=== PATIENT | male | born 1960 | race African-American/Black ===

== ENCOUNTER 2016-11-20 16:42 | Outpatient (CLI) ==
[2016-05-16 11:19] VITALS: BMI 33.4
[2016-11-20 17:29] LABS: BASOPHILS # (AUTO) 0.1 K/uL (0-0.2); BASOPHILS % (AUTO) 0.5 % (0.0-3.0); EOSINOPHILS # (AUTO) 0.1 K/ul (0.0-0.7); EOSINOPHILS % (AUTO) 0.7 % (0.0-7.0); HEMATOCRIT 37.7 % (42.0-52.0); HEMOGLOBIN 13.1 g/dl (14.0-18.0); IMMATURE GRANULOCYTE % (AUTO) 0.2 % (0.0-5.0); LYMPHOCYTES # (AUTO) 3.8 K/uL (0.60-3.4); LYMPHOCYTES % (AUTO) 30.5 (10.0-50.0); MEAN CORPUSCULAR HGB CONC 34.7 (31.8-35.4); MEAN CORPUSCULAR VOLUME 89.3 fl (80.0-94.0); MONOCYTES # (AUTO) 1.2 K/uL (0.4-2.0); MONOCYTES % (AUTO) 9.3 (0-10); NEUTROPHILS # (AUTO) 7.3 K/ul (2.0-6.9); NEUTROPHILS % (AUTO) 58.8; PLATELET COUNT 258 10^3/uL (140-440); RED BLOOD COUNT 4.22 10^6/ul (4.70-6.10); WHITE BLOOD COUNT 12.37 K/ul (4.2-10.2)
[2016-11-20 17:48] LABS: ALBUMIN 4.5 g/dL (3.4-5.0); ALBUMIN/GLOBULIN RATIO 1.22; ANION GAP 19.6; BILIRUBIN,TOTAL 0.62 mg/dL (0.00-1.20); BUN/CREATININE RATIO 9.14; CALCIUM 9.6 mg/dL (8.2-10.2); CHOL/HDL RATIO 5.9 (4.5-6.4); POTASSIUM 3.6 mmol/L (3.5-5.1); TOTAL PROTEIN 8.2 g/dL (6.4-8.2)
[2016-11-20 18:13] LABS: CREATININE 5.25 mg/dL (0.60-1.10)
== END 2016-11-20 16:43 | disposition home or self-care (01) ==
LOC: LAB 16:42
PROVIDERS: ATTEND Nurse Practitioner Family
DX: F41.9 Anxiety disorder, unspecified (principal); I10 Essential (primary) hypertension; M54.2 Cervicalgia
CPT/HCPCS: 36415; 80053; 80061; 85025

== ENCOUNTER 2016-12-24 12:57 | Outpatient (CLI) ==
[2016-05-16 11:19] VITALS: BMI 33.4
[2016-12-24 15:43] LABS: BASOPHILS % (AUTO) 0.4 % (0.0-3.0); EOSINOPHILS # (AUTO) 0.2 K/ul (0.0-0.7); EOSINOPHILS % (AUTO) 2.5 % (0.0-7.0); HEMATOCRIT 42.6 % (42.0-52.0); HEMOGLOBIN 14.1 g/dl (14.0-18.0); IMMATURE GRANULOCYTE % (AUTO) 0.1 % (0.0-5.0); LYMPHOCYTES # (AUTO) 2.3 K/uL (0.60-3.4); LYMPHOCYTES % (AUTO) 30.4 (10.0-50.0); MEAN CORPUSCULAR HEMOGLOBIN 30.3 pg (27.0-31.0); MEAN CORPUSCULAR HGB CONC 33.1 (31.8-35.4); MEAN CORPUSCULAR VOLUME 91.6 fl (80.0-94.0); MONOCYTES # (AUTO) 0.6 K/uL (0.4-2.0); MONOCYTES % (AUTO) 7.2 (0-10); NEUTROPHILS # (AUTO) 4.6 K/ul (2.0-6.9); NEUTROPHILS % (AUTO) 59.4; PLATELET COUNT 303 10^3/uL (140-440); RED BLOOD COUNT 4.65 10^6/ul (4.70-6.10); WHITE BLOOD COUNT 7.66 K/ul (4.2-10.2)
[2016-12-24 15:55] LABS: ALBUMIN 3.8 g/dL (3.4-5.0); ALBUMIN/GLOBULIN RATIO 0.95; ANION GAP 14.5; BILIRUBIN,TOTAL 0.15 mg/dL (0.00-1.20); BUN/CREATININE RATIO 21.35; CALCIUM 9.7 mg/dL (8.2-10.2); CREATININE 1.03 mg/dL (0.60-1.10); POTASSIUM 4.5 mmol/L (3.5-5.1); TOTAL PROTEIN 7.8 g/dL (6.4-8.2)
== END 2016-12-24 12:58 | disposition home or self-care (01) ==
LOC: LAB 12:57
PROVIDERS: ATTEND Emergency Medicine
DX: I10 Essential (primary) hypertension (principal); N17.0 Acute kidney failure with tubular necrosis
CPT/HCPCS: 36415; 80053; 85025

== ENCOUNTER 2017-02-04 08:31 | Emergency (ER) ==
[2017-02-04 08:42] VITALS: TEMP 95.9; BMI 36.0
[2017-02-04 08:50] VITALS: BP 131/95
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
--- NOTE | 2017-02-04 09:53 | CT ---
EXAM: CT of the head without contrast History: Head trauma. Comparison: Head CT 04/25/2016 Technique: Multiplanar CT images through the head were obtained without the administration of IV co ntrast Findings: The visualized paranasal sinuses and mastoid air cells are clear in general. No acute ca lvarial abnormalities. Intracranially the ventricular and cisternal spaces are normal in size, shape and configuration for a patient of this age. No dominant mass or midline shift. No hydrocephalous. No acute intracrania l hemorrhage or abnormal extraaxial fluid collections. Impression: No acute intracranial process.
--- NOTE | 2017-02-04 09:59 | CT ---
EXAM: CT cervical spine. HISTORY: Injury, pain . TECHNIQUE: CT cervical spine without contrast. Detailed axial sections. Coronal and sagittal re-f ormations. COMPARISON: 05/12/2016 FINDINGS: No acute fracture is identified. Vertebral body height is maintained. No spondylolisthesis. Facet joints are covered. Lateral masses of C1 and C2 are normally aligned and the odontoid process is in tact. Moderate to severe degenerative disc and facet disease of the majority of the spine greatest at C6/C7 where there is moderate central canal and bilateral neural foraminal stenosis. These findi ngs are stable since previous exam. Prevertebral soft tissue thickness is normal. There is no para spinal hematoma or fluid collection. IMPRESSION: 1. No acute fracture or subluxation. 2. Moderately severe degenerative changes of the spine.
== END 2017-02-04 10:15 | disposition home or self-care (01) ==
LOC: ED 08:31
DX: S09.90XA Unspecified injury of head, initial encounter (principal); S19.9XXA Unspecified injury of neck, initial encounter; Y00.XXXA Assault by blunt object, initial encounter
CPT/HCPCS: 99283

== ENCOUNTER 2017-03-05 09:51 | Outpatient (CLI) ==
--- NOTE | 2017-03-05 10:47 | CT ---
EXAM: CT of the left knee without contrast History: Left knee pain. Comparison: Left knee radiograph 04/23/2016 Technique: Multiplanar CT images through the left knee were obtained without the administration of I V contrast Findings: No acute fracture or dislocation. Moderate to severe narrowing of the medial compartment. Mild to moderate narrowing of the lateral and patellofemoral compartments. There are osteophytes a nd subchondral cysts. There are intra-articular loose bodies. Small joint effusion. Mild anterior soft tissue swelling. Impression: 1. No acute osseous abnormality. 2. Tricompartmental osteoarthritis which is moderate to severe involving the medial compartment. 3. Small joint effusion and anterior soft tissue swelling. 4. Intra-articular loose bodies.
== END 2017-03-05 09:52 | disposition home or self-care (01) ==
LOC: RAD 09:51
PROVIDERS: ATTEND Emergency Medicine
DX: M25.562 Pain in left knee (principal)

== ENCOUNTER 2017-04-28 14:08 | Emergency (ER) ==
[2017-04-28 14:17] VITALS: BP 145/67; TEMP 99.3; BMI 34.9
--- NOTE | 2017-04-28 15:47 | ED.PDOC ---
General ED Provider: Dr. ARA SARMIENTO Chief Complaint: Knee Pain/Injury Stated Complaint: right knee pain Time Seen by Physician: 15:33 (fall ) Mode of Arrival: Wheelchair Information Source: Patient Exam Limitations: No limitations [facility] and Triage Documentation Reviewed and Agree: Yes (would like muscle relaxore to be refill) Review of Systems - Review Of Systems Constitutional: Reports: No symptoms Eyes: Reports: No symptoms Ears, Nose, Mouth, Throat: Reports: No symptoms Respiratory: Reports: No symptoms Cardiac: Reports: No symptoms GI: Reports: No symptoms : Reports: No symptoms Musculoskeletal: Reports: Joint pain (left knee) Skin: Reports: No symptoms Neurological: Reports: No symptoms Endocrine: Reports: No symptoms Hematologic/Lymphatic: Reports: No symptoms All Other Systems: Reviewed and Negative Past Medical History - Past Medical History Previously Healthy: Yes Endocrine: Reports: None Cardiovascular: Reports: Hypertension Respiratory: Reports: Asthma, None Hematological: Reports: None Gastrointestinal: Reports: None Genitourinary: Reports: None Neuro/Psych: Reports: None, Anxiety, Depression, Schizophrenia Musculoskeletal: Reports: None Cancer: Reports: None Other Pertinent Past Medical History: DDD - Surgical History General Surgical History: Reports: Other, Hernia Repair - Family History Family History: Reports: None, Unknown - Social History Smoking Status: Former smoker Hx Substance Use: No Alcohol Screening: Occasionally Physical Exam - Physical Exam Appearance: Well-appearing, No pain distress, Well-nourished Eyes: JASWINDER, EOMI, Conjunctiva clear ENT: Ears normal, Nose normal, Oropharynx normal Respiratory: Airway patent, Breath sounds clear, Breath sounds equal, Respirations nonlabored Cardiovascular: RRR, Pulses normal, No rub, No murmur GI/: Soft, Nontender, No masses, Bowel sounds normal, No Organomegaly Musculoskeletal: Limited ROM (right knee) Skin: Warm, Dry, Normal color Neurological: Sensation intact, Motor intact, Reflexes intact, Cranial nerves intact, Alert, Oriented Psychiatric: Affect appropriate, Mood appropriate Critical Care Note - Critical Care Note Total Time (mins): 0 Course - Course Orders, Labs, Meds: Orders Category Date Time Status KNEE, RIGHT 4 VIEWS Stat RADS 04/28/17 15:39 Ordered Vital Signs: Temp Pulse Resp BP Pulse Ox 04/28/17 14:13 99.3 F 129 H 16 145/67 H 97 Departure - Departure Time of Disposition: 17:00 Disposition: HOME SELF-CARE Discharge Problem: Knee pain Instructions: Arthralgia (ED), Knee Pain (ED) Condition: Good Pt referred to PMD for follow-up: Yes Allergies/Adverse Reactions: Allergies morphine Adverse Reaction (Verified 04/28/17 14:10) GETS VIOLENT Home Medications: Ambulatory Orders Hydroxyzine HCl [Atarax] 25 mg PO TID 03/15/16 Amitriptyline HCl 50 mg PO BEDTIME 04/18/16 Hydrocodone/Acetaminophen [[place] 5-325 Tablet] 1 each PO BID 04/28/17
--- NOTE | 2017-04-28 16:11 | DI ---
EXAM: Four views of the right knee HISTORY: Right knee pain. COMPARISON: Right knee x-ray 01/27/2014 FINDINGS: There is no cortical irregularity or displaced fracture. Minimal osteophyte formation is n oted throughout the right knee. There is prepatellar soft tissue swelling with patellar osteophyte p resent. There is no effusion. Metallic densities are noted in the right lower leg. There is no lyti c or blastic lesion. IMPRESSION: 1. Mild prepatellar soft tissue swelling suggestive of trauma versus cellulitis/inflammation. 2. Mild degenerative disease of the right knee.
== END 2017-04-28 16:24 | disposition home or self-care (01) ==
LOC: ED 14:08
DX: M25.561 Pain in right knee (principal); W19.XXXA Unspecified fall, initial encounter
CPT/HCPCS: 99283

== ENCOUNTER 2017-05-01 13:09 | Outpatient (CLI) ==
[2017-05-01 13:20] LABS: BASOPHILS % (AUTO) 0.5 % (0.0-3.0); EOSINOPHILS # (AUTO) 0.2 K/ul (0.0-0.7); EOSINOPHILS % (AUTO) 3.3 % (0.0-7.0); HEMATOCRIT 39.5 % (42.0-52.0); HEMOGLOBIN 13.2 g/dl (14.0-18.0); IMMATURE GRANULOCYTE % (AUTO) 0.2 % (0.0-5.0); LYMPHOCYTES # (AUTO) 2.1 K/uL (0.60-3.4); LYMPHOCYTES % (AUTO) 33.1 (10.0-50.0); MEAN CORPUSCULAR HEMOGLOBIN 29.9 pg (27.0-31.0); MEAN CORPUSCULAR HGB CONC 33.4 (31.8-35.4); MEAN CORPUSCULAR VOLUME 89.6 fl (80.0-94.0); MONOCYTES # (AUTO) 0.7 K/uL (0.4-2.0); MONOCYTES % (AUTO) 10.7 (0-10); NEUTROPHILS # (AUTO) 3.4 K/ul (2.0-6.9); NEUTROPHILS % (AUTO) 52.2; PLATELET COUNT 261 10^3/uL (140-440); RED BLOOD COUNT 4.41 10^6/ul (4.70-6.10); WHITE BLOOD COUNT 6.46 K/ul (4.2-10.2)
[2017-05-01 13:53] LABS: ALBUMIN 3.3 g/dL (3.4-5.0); ALBUMIN/GLOBULIN RATIO 0.92; ANION GAP 11.4; BILIRUBIN,TOTAL 0.19 mg/dL (0.00-1.20); BUN/CREATININE RATIO 16.96; CALCIUM 9.2 mg/dL (8.2-10.2); CHOL/HDL RATIO 5.1 (4.5-6.4); CREATININE 1.12 mg/dL (0.60-1.10); POTASSIUM 4.4 mmol/L (3.5-5.1); TOTAL PROTEIN 6.9 g/dL (6.4-8.2)
== END 2017-05-01 13:10 | disposition home or self-care (01) ==
LOC: LAB 13:09
PROVIDERS: ATTEND Emergency Medicine
DX: I10 Essential (primary) hypertension (principal)
CPT/HCPCS: 36415; 80053; 80061; 84443; 85025

== ENCOUNTER 2017-07-04 10:17 | Outpatient (CLI) ==
--- NOTE | 2017-07-04 11:48 | US ---
EXAM: Ultrasound soft tissue neck HISTORY: Localized enlarged lymph nodes. FINDINGS: Tobar-scale ultrasound and color Doppler imaging was performed in the regions of interest de scribed as the region of left submandibular palpable knot. There was a lobulated hypoechoic, probably solid nodule measuring 2.5 x 1.8 x 3.0 cm identified in the region. This appears to possibly be wit hin the submandibular gland proper. There appears to be at least mild internal blood flow. No signi ficant posterior acoustic enhancement. IMPRESSION: Findings concerning for a left submandibular gland mass or complex fluid collection. Less likely an adjacent mass. Correlation with MRI should be considered.
== END 2017-07-04 10:18 | disposition home or self-care (01) ==
LOC: RAD 10:17
PROVIDERS: ATTEND Emergency Medicine
DX: R59.0 Localized enlarged lymph nodes (principal)

== ENCOUNTER 2017-08-28 12:53 | Outpatient (CLI) | END 2017-08-28 12:54 | disposition home or self-care (01) | LOC: RHC-LAB 12:53 | PROVIDERS: ATTEND Emergency Medicine | DX: E78.5 Hyperlipidemia, unspecified (principal); I10 Essential (primary) hypertension | CPT/HCPCS: 36415; 80053; 80061; 84443; 85025 ==

== ENCOUNTER 2018-01-08 15:38 | Outpatient (CLI) | END 2018-01-08 15:39 | disposition home or self-care (01) | LOC: RHC-LAB 15:38 | PROVIDERS: ATTEND Emergency Medicine | DX: F41.9 Anxiety disorder, unspecified (principal); E78.5 Hyperlipidemia, unspecified; I10 Essential (primary) hypertension; Z12.5 Encounter for screening for malignant neoplasm of prostate | CPT/HCPCS: 36415; 80053; 80061; 84443; 85025 ==

== ENCOUNTER 2018-08-07 13:50 | Outpatient (CLI) | END 2018-08-07 13:51 | disposition home or self-care (01) | LOC: RHC-LAB 13:50 → FCC-LAB 13:51 | PROVIDERS: ATTEND Family Medicine | DX: E78.5 Hyperlipidemia, unspecified (principal); F41.9 Anxiety disorder, unspecified; I10 Essential (primary) hypertension; M79.89 Other specified soft tissue disorders | CPT/HCPCS: 36415; 80053; 80061; 85025 ==

== ENCOUNTER 2018-08-11 10:11 | Outpatient (CLI) ==
[2018-08-11 10:27] VITALS: BMI 13.8
== END 2018-08-11 10:16 | disposition critical access hospital (66) ==
LOC: AMBL 10:11
PROVIDERS: ATTEND Emergency Medicine
DX: S89.92XA Unspecified injury of left lower leg, initial encounter (principal); M79.89 Other specified soft tissue disorders; W19.XXXA Unspecified fall, initial encounter

== ENCOUNTER 2018-08-11 10:23 | Emergency (ER) ==
[2018-08-11 10:27] VITALS: BP 137/98; TEMP 98; BMI 13.8
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
[2018-08-11] MEDS ORDERED: TORADOL PO STA (10:39)
--- NOTE | 2018-08-11 11:15 | DI ---
EXAM: Four views of the left knee. History: Left knee trauma. Comparison: Left knee radiograph 04/23/2016 Findings: No acute fracture or dislocation. Evidence of old MCL injury. Anterior soft tissue swell ing. Small superior patellar enthesiophyte. Intra-articular loose body, similar to the prior study within the anterior joint space at Hoffa's fat pad. Mild to moderate tricompartmental joint space na rrowing with osteophytes not significantly changed. Impression: No acute osseous abnormality. Other findings as detailed above. No significant interva l change compared to the prior study.
== END 2018-08-11 11:50 | disposition home or self-care (01) ==
LOC: ED 10:23
DX: M17.12 Unilateral primary osteoarthritis, left knee (principal); M25.462 Effusion, left knee; M25.562 Pain in left knee; S83.92XA Sprain of unspecified site of left knee, initial encounter
CPT/HCPCS: 99283

== ENCOUNTER 2018-08-27 17:43 | Emergency (ER) ==
[2018-08-27 17:52] VITALS: BP 126/85; TEMP 97.8; BMI 30.6
--- NOTE | 2018-08-27 19:32 | ED.PDOC ---
General ED Provider: Dr. LESVIA LYNCH Chief Complaint: Tooth Problem Stated Complaint: patient is a 58 year old male who states that he broke a tooth off while eating today. Now has severe pain to left upper tooth not better with motrin. Has not contacted a dentist yet. Time Seen by Physician: 19:30 Mode of Arrival: Walk-In Information Source: Patient Primary Care Provider: GEORGE CHAVEZ Nursing and Triage Documentation Reviewed and Agree: Yes Does patient meet sepsis criteria?: No System Inflammatory Response Syndrome: Not Applicable Sepsis Protocol: For patient's 13 years and over: Temp is 96.8 and below OR 101 and greater Pulse >90 BPM Resp >20/minute Acutely Altered Mental Status Are patient's symptoms suggestive of a new infection, such as: -Pneumonia -Skin, Soft Tissue -Endocarditis -UTI -Bone, Joint Infection -Implantable Device -Acute Abdominal Infection -Wound Infection -Meningitis -Blood Stream Catheter Infection -Unknown EENT Complaint Exam - Dental/Oral Complaint/Exam Mechanism of Injury: No known trauma Onset/Duration: 1 day Symptoms Are: Still present Timing: Constant Initial Severity: Severe Current Severity: Severe Location: Left upper molar Character: Reports: Aching, Throbbing Aggravating: Reports: Heat, Cold, Chewing Alleviating: Reports: None Associated Signs and Symptoms: Reports: Discharge, Foul odor, Foul taste in mouth Related History: Reports: Similar episode Tooth Findings: Present: Percussion tenderness, Gross decay, Gross caries, Dental fracture, Abcess Cervical Lymphadenopathy Present: No Facial Swelling Present: No Bleeding Present: No Oropharynx Findings: Absent: Clots, Active bleeding Septal Hematoma: No Foreign Body Present: No Dysphagia Present: No Drooling Present: No Asymmetrical Tonsillar Swelling Present: No Uvula Midline: No Ghada-tonsillar Fluctuence: No Trismus Present: No Palatal Petechiae Present: No Scarlatinaform Rash Present: No Lesions: Absent: Lip, Gums, Tongue, Buccal Mucosa, Pharynx Exanthem: Absent: Lip, Gums, Tongue, Buccal Mucosa, Pharynx Vesicles: Absent: Lip, Gums, Tongue, Buccal Mucosa, Pharynx Teeth Picture: 1 - fracture, gross decay, mild abscess Differential Diagnoses: Dental Abcess, Dental Caries, Fractured Tooth Review of Systems - Review Of Systems Constitutional: Reports: No symptoms Eyes: Reports: No symptoms Ears, Nose, Mouth, Throat: Reports: Mouth pain Respiratory: Reports: No symptoms Cardiac: Reports: No symptoms GI: Reports: No symptoms : Reports: No symptoms Musculoskeletal: Reports: No symptoms Skin: Reports: No symptoms Neurological: Reports: No symptoms Endocrine: Reports: No symptoms Hematologic/Lymphatic: Reports: No symptoms All Other Systems: Reviewed and Negative Past Medical History - Past Medical History Previously Healthy: Yes Endocrine: Reports: None Cardiovascular: Reports: Hypertension Respiratory: Reports: Asthma, None Hematological: Reports: None Gastrointestinal: Reports: None Genitourinary: Reports: None Neuro/Psych: Reports: None, Anxiety, Depression, Schizophrenia Musculoskeletal: Reports: None Cancer: Reports: None Other Pertinent Past Medical History: DDD - Surgical History General Surgical History: Reports: Other, Hernia Repair - Family History Family History: Reports: None, Unknown - Social History Smoking Status: Former smoker Hx Substance Use: No Alcohol Screening: Occasionally Physical Exam - Physical Exam Appearance: Ill-appearing Ill-appearing: Mild Pain Distress: Severe Eyes: JASWINDER, EOMI, Conjunctiva clear Neck: Supple Respiratory: Airway patent, Breath sounds clear, Breath sounds equal, Respirations nonlabored Cardiovascular: RRR, Pulses normal, No rub, No murmur Skin: Warm, Dry Neurological: Alert, Oriented Critical Care Note - Critical Care Note Total Time (mins): 0 Course - Course Vital Signs: Temp Pulse Resp BP Pulse Ox 08/27/18 17:46 97.8 F 103 H 20 126/85 97 Departure - Departure Time of Disposition: 19:33 Disposition: HOME SELF-CARE Discharge Problem: Abscess, dental Instructions: Dental Abscess (ED) Condition: Stable Pt referred to PMD for follow-up: Yes IPMP verified?: Yes (Last Narcotic filled was 03/2018, non recently ) Additional Instructions: Follow up with Dentist for evaluation and possible extraction. Take Medications as prescribed. Prescriptions: Hydrocodone Bit/Acetaminophen [[place] 5-325] 1 each PO Q6HR PRN #15 tablet PRN Reason: severe pain Amoxicillin [Amoxil] 500 mg PO TID #30 capsule Allergies/Adverse Reactions: Allergies morphine Adverse Reaction (Verified 03/14/19 17:52) GETS VIOLENT Home Medications: Ambulatory Orders Hydroxyzine HCl [Atarax] 25 mg PO TID 03/15/16 Amitriptyline HCl 50 mg PO BEDTIME 04/18/16 Amoxicillin [Amoxil] 500 mg PO TID #30 capsule 08/27/18 Hydrocodone Bit/Acetaminophen [[place] 5-325] 1 each PO Q6HR PRN #15 tablet Disposition Discussed With: Patient
== END 2018-08-27 19:44 | disposition home or self-care (01) ==
LOC: ED 17:43
DX: K08.89 Other specified disorders of teeth and supporting structures (principal); K04.7 Periapical abscess without sinus; S02.5XXA Fracture of tooth (traumatic), initial encounter for closed fracture; K02.7 Dental root caries
CPT/HCPCS: 99282

== ENCOUNTER 2018-10-02 02:41 | Emergency (ER) ==
[2018-10-02 02:53] VITALS: BP 118/79; TEMP 98.4; BMI 29.0
--- NOTE | 2018-10-02 03:32 | ED.PDOC ---
General ED Provider: Dr. NILA BELLO-ER Chief Complaint: Non-specific Complaint Stated Complaint: my hernia is back Time Seen by Physician: 03:00 Mode of Arrival: Walk-In Information Source: Patient Exam Limitations: No limitations Primary Care Provider: GEORGE CHAVEZ Nursing and Triage Documentation Reviewed and Agree: Yes Does patient meet sepsis criteria?: No System Inflammatory Response Syndrome: Not Applicable Sepsis Protocol: For patient's 13 years and over: Temp is 96.8 and below OR 101 and greater Pulse >90 BPM Resp >20/minute Acutely Altered Mental Status Are patient's symptoms suggestive of a new infection, such as: -Pneumonia -Skin, Soft Tissue -Endocarditis -UTI -Bone, Joint Infection -Implantable Device -Acute Abdominal Infection -Wound Infection -Meningitis -Blood Stream Catheter Infection -Unknown Miscellaneous Complaint Exam - Complex/Multi-System Complaint/Exam Onset/Duration: 2 days Symptoms Are: Still present Initial Severity: Mild Current Severity: Mild Location of Pain: right inguinal area Associated Signs and Symptoms: Reports: Abdominal pain. Denies: Decreased responsiveness, Confusion, Agitation, Dizziness, Weakness, Syncope, Headache, Short of air, Cough, Wheezing, Hemoptysis, Chest pain, Palpitations, Edema, Nausea, Vomiting, Diarrhea, Back pain, Dysuria, Hematemesis, Melena, Decreased oral intake, Fever, Diaphoresis, Immunocompromised, Anticoagulation Therapy, Recent medication changes, Indwelling medical records tech, Prior MRSA, Prior VRE, Recent trauma, Remote trauma Review of Systems - Review Of Systems Constitutional: Reports: No symptoms Eyes: Reports: No symptoms Ears, Nose, Mouth, Throat: Reports: No symptoms Respiratory: Reports: No symptoms Cardiac: Reports: No symptoms GI: Reports: Abdominal pain : Reports: No symptoms Musculoskeletal: Reports: No symptoms Skin: Reports: No symptoms Neurological: Reports: No symptoms Endocrine: Reports: No symptoms Hematologic/Lymphatic: Reports: No symptoms All Other Systems: Reviewed and Negative Past Medical History - Past Medical History Previously Healthy: Yes Endocrine: Reports: None Cardiovascular: Reports: Hypertension Respiratory: Reports: Asthma, None Hematological: Reports: None Gastrointestinal: Reports: None Genitourinary: Reports: None Neuro/Psych: Reports: None, Anxiety, Depression, Schizophrenia Musculoskeletal: Reports: None Cancer: Reports: None Other Pertinent Past Medical History: DDD - Surgical History General Surgical History: Reports: Other, Hernia Repair - Family History Family History: Reports: None, Unknown - Social History Smoking Status: Former smoker Hx Substance Use: No Alcohol Screening: Occasionally - Immunizations Tetanus Shot up to Date: Yes (3 yrs ago) Physical Exam - Physical Exam Appearance: Well-appearing, No pain distress, Well-nourished Pain Distress: Mild Eyes: JASWINDER, EOMI, Conjunctiva clear ENT: Ears normal, Nose normal, Oropharynx normal Neck: Supple Respiratory: Airway patent, Breath sounds clear, Breath sounds equal, Respirations nonlabored Cardiovascular: RRR, Pulses normal, No rub, No murmur GI/: Soft, Tender Musculoskeletal: Normal strength Skin: Warm Neurological: Sensation intact, Motor intact, Reflexes intact, Cranial nerves intact, Alert, Oriented Psychiatric: Affect appropriate, Mood appropriate Critical Care Note - Critical Care Note Total Time (mins): 0 Course - Course Vital Signs: Temp Pulse Resp BP Pulse Ox 10/02/18 02:44 98.4 F 127 H 18 118/79 97 Departure - Departure Time of Disposition: 03:31 Disposition: HOME SELF-CARE Discharge Problem: Inguinal hernia Qualifiers: Obstruction and gangrene presence: without obstruction or gangrene Laterality: unilateral Recurrence: not specified as recurrent Qualified Code(s): K40.90 - Unilateral inguinal hernia, without obstruction or gangrene, not specified as recurrent Instructions: Inguinal Hernia (ED) Condition: Good Pt referred to PMD for follow-up: Yes IPMP verified?: No Additional Instructions: do not lift more than 10 lbs---do not strain with bm---go to the clinic today and get surgical referral Allergies/Adverse Reactions: Allergies morphine Adverse Reaction (Verified 10/02/18 02:53) GETS VIOLENT Home Medications: Ambulatory Orders Hydroxyzine HCl [Atarax] 25 mg PO TID 03/15/16 Amitriptyline HCl 50 mg PO BEDTIME 04/18/16 Disposition Discussed With: Patient
== END 2018-10-02 03:48 | disposition home or self-care (01) ==
LOC: ED 02:41
DX: K40.90 Unilateral inguinal hernia, without obstruction or gangrene, not specified as recurrent (principal)
CPT/HCPCS: 99282

== ENCOUNTER 2021-02-23 02:54 | Inpatient (IN) ==
[2021-02-23] MEDS ORDERED: SODIUM CHLORIDE 1,000 ML IV STA ×2 (03:05→07:53)
[2021-02-23] MEDS ORDERED: ZOFRAN 4 MG/2 ML IVP ONE (03:05)
[2021-02-23] MEDS ORDERED: VASOTEC IV IVP STA (03:10)
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
[2021-02-23] MEDS ORDERED: TORADOL IVP ONE (03:13)
[2021-02-23 03:32] LABS: HEMATOCRIT 40.6 % (42.0-52.0); HEMOGLOBIN 13.3 g/dl (14.0-18.0); MEAN CORPUSCULAR HEMOGLOBIN 30.6 pg (27.0-31.0); MEAN CORPUSCULAR HGB CONC 32.8 (31.8-35.4); MEAN CORPUSCULAR VOLUME 93.5 fl (80.0-94.0); PLATELET COUNT 313 10^3/uL (140-440); RED BLOOD COUNT 4.34 10^6/ul (4.70-6.10); WHITE BLOOD COUNT 16.03 K/ul (4.2-10.2)
[2021-02-23 03:44] LABS: ALANINE AMINOTRANSFERASE 20.5 U/L (0-50); ALBUMIN 4.68 g/dL (3.5-5.0); ALKALINE PHOSPHATASE 120.5 U/L (38-126); ASPARTATE AMINO TRANSFERASE 22.1 U/L (17-59); BILIRUBIN,TOTAL 0.41 mg/dL (0.2-1.3); CALCIUM 8.07 mg/dL (8.4-10.2); CARBON DIOXIDE 14.7 mmol/L (22-30.0); CHLORIDE 108.3 mmol/L (98-107); GLUCOSE 143.2 mg/dL (74-106); LIPASE 11.4 U/L (23-300); POTASSIUM 3.91 mmol/L (3.5-5.1); SODIUM 141.7 mmol/L (134.5-145); TOTAL PROTEIN 8.89 g/dL (6.3-8.2)
[2021-02-23 03:49] LABS: ANISOCYTOSIS NOT PRESENT (NOT PRESENT)
[2021-02-23 03:52] LABS: BLOOD UREA NITROGEN 67.6 mg/dL (9-20); CREATININE 3.72 mg/dL (0.60-1.10)
[2021-02-23 08:11] LABS: BORDETELLA PARAPERTUSSIS (PCR) NOT DETECTED (NOT DETECT); BORDETELLA PERTUSSIS (PCR) NOT DETECTED (NOT DETECT); CHLAMYDIA PNEUMONIAE (PCR) NOT DETECTED (NOT DETECT); CORONAVIRUS 229E (PCR) NOT DETECTED (NOT DETECT); CORONAVIRUS HKU1 (PCR) NOT DETECTED (NOT DETECT); CORONAVIRUS NL63 (PCR) NOT DETECTED (NOT DETECT); CORONAVIRUS OC43 (PCR) NOT DETECTED (NOT DETECT); HUMAN METAPNEUMOVIRUS (PCR) NOT DETECTED (NOT DETECT); HUMAN RHINOVIRUS/ENTEROV (PCR) NOT DETECTED (NOT DETECT); INFLUENZA B (PCR) NOT DETECTED (NOT DETECT); MYCOPLASMA PNEUMONIAE (PCR) NOT DETECTED (NOT DETECT); PARAINFLUENZA VIRUS 1 (PCR) NOT DETECTED (NOT DETECT); PARAINFLUENZA VIRUS 2 (PCR) NOT DETECTED (NOT DETECT); PARAINFLUENZA VIRUS 3 (PCR) NOT DETECTED (NOT DETECT); PARAINFLUENZA VIRUS 4 (PCR) NOT DETECTED (NOT DETECT); RESPIRATORY SYNCYTIAL V (PCR) NOT DETECTED (NOT DETECT); SARS_COV_2 (PCR) NOT DETECTED (NOT DETECT)
[2021-02-23 09:05] LABS: ADENOVIRUS (PCR) NOT DETECTED (NOT DETECT)
[2021-02-23] MEDS ORDERED: SODIUM CHLORIDE 1,000 ML IV SCH (09:30)
[2021-02-23] MEDS ORDERED: ATARAX PO PRN (13:30)
[2021-02-23] MEDS: XANAX PO SCH ×3 (14:05→20:56)
[2021-02-23] MEDS: LOPRESSOR PO SCH ×2 (14:06→20:57)
[2021-02-23 15:25] LABS: BILIRUBIN,URINE Negative (NEGATIVE); CLARITY,URINE Slightly (CLEAR); COLOR,URINE Yellow (YELLOW); GLUCOSE, URINE (UA) Negative (NEGATIVE); KETONES,URINE Negative (NEGATIVE); LEUKOCYTE ESTERASE ,URINE Negative (NEGATIVE); NITRITE,URINE Negative (NEGATIVE); PH,URINE 5.5 (5-9); PROTEIN,URINE Trace (NEGATIVE); URINE, BLOOD Trace-lysed (NEGATIVE); UROBILINOGEN,URINE 0.2 (0.2)
[2021-02-23 15:33] LABS: MUCUS,URINE TRACE (NOT PRESENT)
[2021-02-23 15:35] LABS: AMPHETAMINE SCREEN,URINE POSITIVE (NEGATIVE); BARBITURATE SCREEN,URINE NEGATIVE (NEGATIVE); BENZODIAZEPINES SCREEN,URINE NEGATIVE (NEGATIVE); CANNABINOID SCREEN,URINE NEGATIVE (NEGATIVE); COCAIN SCREEN,URINE NEGATIVE (NEGATIVE); METHADONE URINE SCREEN NEGATIVE (NEGATIVE); METHAMPHETAMINES SCREEN,URINE POSITIVE (NEGATIVE); OPIATE SCREEN,URINE NEGATIVE (NEGATIVE); OXYCODONE URINE SCREEN NEGATIVE (NEGATIVE); PHENCYCLIDINE SCREEN,URINE NEGATIVE (NEGATIVE); PROPOXYPHENE URINE SCREEN NEGATIVE (NEGATIVE); TRICYCLIC ANTIDEPRESSANTS URIN NEGATIVE (NEGATIVE)
[2021-02-23] MEDS ORDERED: TYLENOL PO PRN (17:32)
[2021-02-23] MEDS ORDERED: STADOL IM PRN (17:32)
[2021-02-23] MEDS ORDERED: ROCEPHIN 1 GM/50 ML D5W 1 GM/50 ML BAG IV ONE (17:32)
[2021-02-23] MEDS: LIDOCAINE VISCOUS 2% 15 ML UD MUCOUSMEMB PRN (18:17)
[2021-02-23 19:30] VITALS: BMI 27.7
[2021-02-23] MEDS: SEROQUEL PO SCH (20:57)
[2021-02-23] MEDS: SODIUM CHLORIDE 1,000 ML IV SCH ×2 (21:01→23:45)
[2021-02-24] MEDS: SODIUM CHLORIDE 1,000 ML IV SCH ×6 (01:16→22:14)
[2021-02-24] MEDS: LIDOCAINE VISCOUS 2% 15 ML UD MUCOUSMEMB PRN ×3 (03:07→21:13)
[2021-02-24 05:52] LABS: MEAN CORPUSCULAR HEMOGLOBIN 30.3 pg (27.0-31.0); MEAN CORPUSCULAR HGB CONC 32.9 (31.8-35.4); PLATELET COUNT 291 10^3/uL (140-440); RDW COEFFICIENT OF VARIATION 15.9 % (11.6-14.8); RED BLOOD COUNT 3.63 10^6/ul (4.70-6.10)
[2021-02-24 06:07] LABS: CALCIUM 7.1 mg/dL (8.4-10.2); CARBON DIOXIDE 17.6 mmol/L (22-30.0); CHLORIDE 114.7 mmol/L (98-107); GLUCOSE 94.4 mg/dL (74-106); POTASSIUM 3.57 mmol/L (3.5-5.1); SODIUM 141.4 mmol/L (134.5-145)
[2021-02-24 06:11] LABS: BLOOD UREA NITROGEN 37.2 mg/dL (9-20); CREATININE 1.35 mg/dL (0.60-1.10)
[2021-02-24 06:44] LABS: HEMATOCRIT 33.4 % (42.0-52.0)
[2021-02-24 06:45] LABS: ANISOCYTOSIS NOT PRESENT (NOT PRESENT); WHITE BLOOD COUNT 10.75 K/ul (4.2-10.2)
[2021-02-24] MEDS ORDERED: ZOFRAN 4 MG/2 ML IVP ONE (08:47)
[2021-02-24] MEDS ORDERED: STADOL IM PRN (09:00)
--- NOTE | 2021-02-24 09:45 | DI ---
EXAM: Radiographs, abdomen HISTORY: Small bowel obstruction. COMPARISON: CT 1 day prior. TECHNIQUE: Supine and upright views. FINDINGS: Persistent moderate distension of multiple small bowel loops with air-fluid levels on the upright film. Air fluid level in the stomach and probably air fluid levels within the colon as well. There is stool in the rectum. Overall degree of bowel distension probably unchanged from prior exa mination. There is no free air under the diaphragm. No travis bowel wall thickening or pneumatosis. No soft tissue masses. Degenerative changes in the spine. Lung bases clear save for calcified gran ulomatous changes. IMPRESSION: Stable appearance of the bowel consistent with a small bowel obstruction.
[2021-02-24] MEDS: XANAX PO SCH ×3 (10:08→21:12)
[2021-02-24] MEDS: LOPRESSOR PO SCH ×2 (10:08→21:13)
[2021-02-24] MEDS: ROCEPHIN 1 GM/50 ML D5W 1 GM/50 ML BAG IV SCH (10:09)
[2021-02-24] MEDS: TYLENOL PO PRN (11:56)
[2021-02-24] MEDS ORDERED: APRESOLINE PO STA (14:18)
[2021-02-24] MEDS ORDERED: APRESOLINE ONE (14:25)
[2021-02-24] MEDS ORDERED: HYDRALAZINE HCL IVP STA (18:47)
[2021-02-24] MEDS ORDERED: APRESOLINE PO SCH (21:00)
[2021-02-24] MEDS: SEROQUEL PO SCH (21:12)
[2021-02-24] MEDS: ZOFRAN 4 MG/2 ML IVP PRN (21:17)
[2021-02-25] MEDS: APRESOLINE PO SCH ×5 (00:10→23:53)
[2021-02-25] MEDS: SODIUM CHLORIDE 1,000 ML IV SCH ×6 (02:20→23:19)
[2021-02-25] MEDS: LOPRESSOR PO SCH ×2 (08:06→21:15)
[2021-02-25] MEDS: LIDOCAINE VISCOUS 2% 15 ML UD MUCOUSMEMB PRN (08:06)
[2021-02-25] MEDS: XANAX PO SCH ×4 (08:06→21:47)
[2021-02-25] MEDS: ROCEPHIN 1 GM/50 ML D5W 1 GM/50 ML BAG IV SCH (08:06)
[2021-02-25] MEDS: TYLENOL PO PRN (09:48)
[2021-02-25] MEDS: STADOL IM PRN ×2 (11:18→23:39)
[2021-02-25] MEDS: ZESTRIL PO SCH ×2 (11:18→21:15)
--- NOTE | 2021-02-25 12:17 | DI ---
EXAM: Radiographs, abdomen HISTORY: Abdominal pain. COMPARISON: Radiograph [address] 2 days prior. TECHNIQUE: Supine and upright view. FINDINGS: Moderate distension of multiple small bowel loops noted with air-fluid levels on the uprig ht film, similar to original CT. Air within mildly distended colon which also contains air fluid lev els. No free air. No soft tissue masses. Lung bases clear. IMPRESSION: 1. Stable findings which are suggestive of small bowel obstruction. 2. Nonspecific appearance of the colon.
[2021-02-25] MEDS ORDERED: NUBAIN IVP ONE (13:00)
[2021-02-25] MEDS: ZOFRAN 4 MG/2 ML IVP PRN ×2 (13:12→19:50)
[2021-02-25] MEDS: SEROQUEL PO SCH (21:14)
[2021-02-26] MEDS: SODIUM CHLORIDE 1,000 ML IV SCH (03:27)
[2021-02-26 04:52] LABS: HEMATOCRIT 31.7 % (42.0-52.0); HEMOGLOBIN 10.7 g/dl (14.0-18.0); MEAN CORPUSCULAR HEMOGLOBIN 30.3 pg (27.0-31.0); MEAN CORPUSCULAR HGB CONC 33.8 (31.8-35.4); MEAN CORPUSCULAR VOLUME 89.8 fl (80.0-94.0); PLATELET COUNT 313 10^3/uL (140-440); RDW COEFFICIENT OF VARIATION 14.8 % (11.6-14.8); RED BLOOD COUNT 3.53 10^6/ul (4.70-6.10); WHITE BLOOD COUNT 13.95 K/ul (4.2-10.2)
[2021-02-26 05:03] LABS: ALANINE AMINOTRANSFERASE 8.4 U/L (0-50); ALBUMIN 2.98 g/dL (3.5-5.0); ALKALINE PHOSPHATASE 65.7 U/L (38-126); ASPARTATE AMINO TRANSFERASE 16.7 U/L (17-59); BILIRUBIN,TOTAL 0.28 mg/dL (0.2-1.3); BLOOD UREA NITROGEN 10.3 mg/dL (9-20); CALCIUM 7.77 mg/dL (8.4-10.2); CARBON DIOXIDE 20.1 mmol/L (22-30.0); CREATININE 0.9 mg/dL (0.60-1.10); GLUCOSE 97.9 mg/dL (74-106); POTASSIUM 3.14 mmol/L (3.5-5.1); SODIUM 136.9 mmol/L (134.5-145); TOTAL PROTEIN 5.62 g/dL (6.3-8.2)
[2021-02-26 05:08] LABS: ANISOCYTOSIS NOT PRESENT (NOT PRESENT)
[2021-02-26] MEDS: DEXTROSE 5%-1/2NS IV SOLUTION 1,000 ML IV SCH ×2 (05:46→15:56)
[2021-02-26] MEDS: APRESOLINE PO SCH ×3 (05:50→17:41)
--- NOTE | 2021-02-26 08:54 | PCM.PROG ---
Date Seen by Provider: 02/26/21 Time Seen by Provider: 08:10 Subjective: Patient is doing better. Still with some nausea and abdominal discomfort. Has had 3 BMs and was tolerating full clears last night. No F/C/CP/SOB Objective: Vitals: T=98.4 F, P=83, R=16, ZY=392/77, SPO2=95 HEENT: [] Neck: [] Lungs: [] CVS: [] Abdomen: [Soft with min TTP. Good bowel sounds] Extremities: [] Neurological: [] Skin: [] Lab/Tests/Diagnostic Imaging: [WBC 13.9. Hb 10.7, Cr. 0.9 K+ 3.1] Plan: Patient has corrected his Acure renal injury. His Hb has dropped but is similar to in 2016 and was likely high due to hemoconcentration. Will repeat an abdominal series to evaluate for change/obstruction, replete K+ and have take a diet. Will reevaluate around noon to see if patient is doing well and can possibly be discharged.
[2021-02-26] MEDS ORDERED: BENADRYL 25 MG in SODIUM CHLORIDE 100 ML IV ONE (08:57)
[2021-02-26] MEDS ORDERED: REGLAN IVP ONE ×2 (08:57→18:46)
[2021-02-26] MEDS ORDERED: K-DUR PO ONE (08:57)
[2021-02-26] MEDS ORDERED: BENADRYL ONE ×2 (09:08→19:53)
[2021-02-26] MEDS: STADOL IM PRN ×2 (09:17→15:57)
[2021-02-26] MEDS: ZESTRIL PO SCH ×2 (09:22→20:01)
[2021-02-26] MEDS: LOPRESSOR PO SCH ×2 (09:22→20:01)
[2021-02-26] MEDS: XANAX PO SCH ×3 (09:22→20:01)
[2021-02-26] MEDS: ROCEPHIN 1 GM/50 ML D5W 1 GM/50 ML BAG IV SCH (10:20)
--- NOTE | 2021-02-26 11:36 | DI ---
EXAM: Radiographs, abdomen HISTORY: Bowel obstruction, abdominal pain. COMPARISON: 02/25/2021, 02/24/2021, 02/23/2021. TECHNIQUE: Supine and upright views. FINDINGS: Persistent small bowel distension with air-fluid levels. Degree of small bowel distension appears mildly decreased. Air seen within the colon. No free air under the diaphragm. No soft tis jonatan mass identified. Bibasilar atelectasis. Calcified granulomatous changes. Degenerative changes in the spine. IMPRESSION: Mild decrease in small bowel distension although bowel gas pattern suggestive of persistent small bow el obstruction. Consider enteric tube placement as warranted.
--- NOTE | 2021-02-26 13:56 | PCM.PROG ---
Date Seen by Provider: 02/26/21 Time Seen by Provider: 13:54 Subjective: Pt not eating well and still with some abdominal discomfort. XR shows minimal improvement but still with some dilated loops of blwel consistent with partial SBO being persistent, Objective: Vitals: T=98.7 F, P=68, R=16, VO=185/85, SPO2=96 HEENT: [] Neck: [] Lungs: [] CVS: [] Abdomen: [] Extremities: [] Neurological: [] Skin: [] Lab/Tests/Diagnostic Imaging: [] Plan: Will continue to observe and advance diet as tolerated. Will recheck labs and XR tomorrow.
[2021-02-26] MEDS: ZOFRAN 4 MG/2 ML IVP PRN (16:00)
[2021-02-26] MEDS ORDERED: BENADRYL 50 MG in SODIUM CHLORIDE 100 ML IV STA (18:46)
--- NOTE | 2021-02-26 19:57 | CT ---
Exam: CT abdomen and pelvis with and without contrast Date: 02/26/2021 Comparison: CT abdomen pelvis 05/11/2019 History: Abdominal pain TECHNIQUE: Axial CT images through the abdomen and pelvis were obtained before and after the intrave nous administration of iodinated contrast dye.. MPR images obtained. All CT scans are performed usin g dose optimization techniques as appropriate to the performed exam and includes at least one of the following: Automated exposure control, adjustment of the mA and/or kV according to size, and the use of iterative reconstruction technique. FINDINGS: The lower chest demonstrates small bilateral pleural effusions with mild compressive atele ctasis of the bilateral lower lobes. Gallbladder is normal in caliber and without pericholecystic fl uid or fat stranding. Liver, spleen, pancreas, and the right adrenal gland are normal. There is a 1 .1 cm left adrenal adenoma. Negative appendix on axial image 272. No evidence of high-grade mechanical maintenance engineer al small bowel obstruction, but there is a nonspecific bowel gas pattern with air-filled loops of mil dly distended small and large bowel without transition point. This may represent adynamic ileus. Th ere is a mild amount of ascites. There is diffuse increased density of the subcutaneous fat likely r epresenting anasarca. No bladder calculi. No bladder wall thickening. There are old left rib fract ures. There is a 5.0 x 4.0 cm lipoma and mild free fluid within the right inguinal canal. No hernia salina bowel loops are identified. There is a small lipoma in the left inguinal canal measuring 3.1 x 2 .1 cm. No worrisome blastic or lytic osseous lesions in the abdomen or pelvis. Impression: 1. Nonspecific bowel gas pattern is suggestive of adynamic ileus. No evidence of high-grade mechani pato bowel obstruction. 2. Negative appendix. 3. Small bilateral pleural effusions, anasarca, and ascites identified suggestive of third spacing o r volume overload. All CT scans are performed using dose optimization techniques as appropriate to the performed exam an d include at least one of the following: Automated exposure control, adjustment of the mA and/or kV according t o size, and the use of iterative reconstruction technique.
[2021-02-26] MEDS: SEROQUEL PO SCH (20:01)
[2021-02-27] MEDS: APRESOLINE PO SCH ×4 (00:05→17:02)
[2021-02-27] MEDS: DEXTROSE 5%-1/2NS IV SOLUTION 1,000 ML IV SCH ×3 (00:25→18:02)
[2021-02-27] MEDS: TYLENOL PO PRN (03:22)
[2021-02-27 05:01] LABS: HEMATOCRIT 30.7 % (42.0-52.0); HEMOGLOBIN 10.6 g/dl (14.0-18.0); MEAN CORPUSCULAR HEMOGLOBIN 30.1 pg (27.0-31.0); MEAN CORPUSCULAR HGB CONC 34.5 (31.8-35.4); MEAN CORPUSCULAR VOLUME 87.2 fl (80.0-94.0); PLATELET COUNT 313 10^3/uL (140-440); RDW COEFFICIENT OF VARIATION 14.3 % (11.6-14.8); RED BLOOD COUNT 3.52 10^6/ul (4.70-6.10)
[2021-02-27 05:11] LABS: ALANINE AMINOTRANSFERASE 8.7 U/L (0-50); ALBUMIN 3.02 g/dL (3.5-5.0); ALKALINE PHOSPHATASE 57.1 U/L (38-126); ASPARTATE AMINO TRANSFERASE 16.6 U/L (17-59); BILIRUBIN,TOTAL 0.47 mg/dL (0.2-1.3); BLOOD UREA NITROGEN 6.2 mg/dL (9-20); CALCIUM 7.7 mg/dL (8.4-10.2); CARBON DIOXIDE 24.7 mmol/L (22-30.0); CREATININE 0.77 mg/dL (0.60-1.10); GLUCOSE 120.2 mg/dL (74-106); POTASSIUM 3.12 mmol/L (3.5-5.1); SODIUM 133.2 mmol/L (134.5-145); TOTAL PROTEIN 5.55 g/dL (6.3-8.2)
[2021-02-27 05:16] LABS: ANISOCYTOSIS NOT PRESENT (NOT PRESENT)
[2021-02-27] MEDS: ZOFRAN 4 MG/2 ML IVP PRN ×2 (06:34→07:37)
[2021-02-27] MEDS: ZESTRIL PO SCH ×2 (08:58→20:11)
[2021-02-27] MEDS: LOPRESSOR PO SCH ×2 (08:58→20:11)
[2021-02-27] MEDS: XANAX PO SCH ×3 (08:59→20:21)
--- NOTE | 2021-02-27 14:08 | DI ---
EXAM: Abdomen, two-view HISTORY: Abdominal pain COMPARISON: None TECHNIQUE: Supine upright views of the abdomen were performed FINDINGS: No dilated loops small bowel. Scattered air in the colon. No free air identified beneath the diaphragm. Bibasilar atelectasis and/or consolidation with possible small bilateral pleural eff usions. No acute abnormalities of the bones. IMPRESSION: 1. No acute abnormality identified in the abdomen. 2. Bibasilar atelectasis and/or pneumonia with possible small bilateral pleural effusions.
--- NOTE | 2021-02-27 18:06 | PCM.PROG ---
Date Seen by Provider: 02/24/21 Time Seen by Provider: 11:00 Subjective: Stiill feeling bloated /abdominal discomfort/ Neg N-V Objective: Vitals: T=98.1 F, P=105, R=20, FV=401/87, SPO2=92 HEENT: CLear Neck: supple Lungs: CTA-AF CVS: HRRR Abdomen: Obese, distended, soft, Tender, guarding w/o Rebound; BS hypoactive Extremities: Neg C/C/E Neurological: Alert, Ox3, CN II-XII intact; no focal motor deficit Skin: WD Lab/Tests/Diagnostic Imaging: [] (1) Partial bowel obstruction: Status: Acute Code(s): K56.600 - Partial intestinal obstruction, unspecified as to cause SNOMED Code(s): 35511146554051873 (2) Abdominal pain: Status: Acute Code(s): R10.9 - Unspecified abdominal pain SNOMED Code(s): 52461350 (3) Renal failure: Status: Acute Code(s): N19 - Unspecified kidney failure SNOMED Code(s): 72631974 (4) HTN (hypertension): Status: Acute Code(s): I10 - Essential (primary) hypertension SNOMED Code(s): 95147406 (5) Constipation: Status: Acute Code(s): K59.00 - Constipation, unspecified SNOMED Code(s): 08209581 (6) Anxiety: Status: Acute Code(s): F41.9 - Anxiety disorder, unspecified SNOMED Code(s): 80550846 Plan: Review diagnostic studies Continue current therapy NPO except clear liquids Encourage NG tube with patient refusing consideration , Explained bendfit and risk of SBO Monitor closely Recheck tomorrow
[2021-02-27] MEDS: SEROQUEL PO SCH (20:10)
[2021-02-28] MEDS: APRESOLINE PO SCH ×3 (00:16→12:40)
[2021-02-28] MEDS: ZESTRIL PO SCH (10:00)
[2021-02-28] MEDS: LOPRESSOR PO SCH (10:00)
[2021-02-28] MEDS: XANAX PO SCH (10:00)
[2021-02-28 11:11] LABS: HEMATOCRIT 31.4 % (42.0-52.0); MEAN CORPUSCULAR HEMOGLOBIN 30.6 pg (27.0-31.0); MEAN CORPUSCULAR VOLUME 87.2 fl (80.0-94.0); PLATELET COUNT 298 10^3/uL (140-440); RDW COEFFICIENT OF VARIATION 14.5 % (11.6-14.8); WHITE BLOOD COUNT 13.42 K/ul (4.2-10.2)
[2021-02-28 11:22] VITALS: BP 141/85; TEMP 97.6
[2021-02-28 11:22] LABS: ANISOCYTOSIS NOT PRESENT (NOT PRESENT)
[2021-02-28 11:23] LABS: ALANINE AMINOTRANSFERASE 9.5 U/L (0-50); ALBUMIN 3.17 g/dL (3.5-5.0); ALKALINE PHOSPHATASE 56.9 U/L (38-126); ASPARTATE AMINO TRANSFERASE 16.1 U/L (17-59); BILIRUBIN,TOTAL 0.35 mg/dL (0.2-1.3); BLOOD UREA NITROGEN 8.6 mg/dL (9-20); CALCIUM 8.19 mg/dL (8.4-10.2); CARBON DIOXIDE 27.5 mmol/L (22-30.0); CHLORIDE 98.9 mmol/L (98-107); CREATININE 0.9 mg/dL (0.60-1.10); GLUCOSE 101.6 mg/dL (74-106); POTASSIUM 3.24 mmol/L (3.5-5.1); SODIUM 132.5 mmol/L (134.5-145); TOTAL PROTEIN 5.75 g/dL (6.3-8.2)
[2021-02-28] MEDS ORDERED: K-DUR PO STA (11:44)
--- NOTE | 2021-02-28 11:49 | PCM.DC ---
Final Diagnosis: Patial small bowel obstruction (1) Partial bowel obstruction: Status: Acute Code(s): K56.600 - Partial intestinal obstruction, unspecified as to cause SNOMED Code(s): 53097561988343018 Qualifiers: Intestinal obstruction type: unspecified Qualified Code(s): K56.600 - Partial intestinal obstruction, unspecified as to cause (2) Abdominal pain: Status: Acute Code(s): R10.9 - Unspecified abdominal pain SNOMED Code(s): 38529842 Qualifiers: Abdominal location: generalized Qualified Code(s): R10.84 - Generalized abdominal pain (3) Renal failure: Status: Acute Code(s): N19 - Unspecified kidney failure SNOMED Code(s): 70211054 Qualifiers: Acute renal failure type: unspecified Renal failure chronicity: acute Qualified Code(s): N17.9 - Acute kidney failure, unspecified (4) HTN (hypertension): Status: Acute Code(s): I10 - Essential (primary) hypertension SNOMED Code(s): 20922492 (5) Constipation: Status: Acute Code(s): K59.00 - Constipation, unspecified SNOMED Code(s): 64050579 Qualifiers: Constipation type: unspecified constipation type Qualified Code(s): K59.00 - Constipation, unspecified (6) Anxiety: Status: Acute Code(s): F41.9 - Anxiety disorder, unspecified SNOMED Code(s): 77395979 Reason for Hospitalization: Partial small bowel obstruction Acute renal injury Prognosis at Discharge: Fair Condition at Discharge: Stable and improved. Medications at Discharge: Ambulatory Orders Medication Instructions Recorded lisinopril 30 mg tablet 30 mg PO DAILY 30 Days #30 tab-cap 09/10/18 meloxicam 15 mg tablet 15 mg PO DAILY 30 Days #30 tab-cap 09/10/18 hydroxyzine HCl 25 mg tablet 12.5 - 25 mg PO daily to BID PRN 10/13/18 30 Days #45 tab-cap quetiapine 50 mg tablet (Seroquel) 100 mg PO BEDTIME 04/21/19 alprazolam 0.5 mg tablet (Xanax) 0.5 mg PO TID 10/05/19 Lab/Diagnostics: Pt had multple labs and CTs which initially indicated a partial SBO which resolved. He will take a multivitamin daily. Follow-ups: Follow-up in the clinic and as case management has discussed Discharge Disposition: Home Hospital Course: Pt presented with partial SBO and acute renal injury. He was treated with fluids and NPO. His renal injury corrected. His diet was advanced and on the day of discharge, he has had multiple bowel movements and has tolerated po for the last 2 days. He is stable from a medical standpoint. He has also been seen by case management and they have worked on a plan to help him get a place to stay. He will need to follow-up per their reccommendations. Plan: 1. Follow-up in the clinic and per case management recommendations. 2. Continue to advance diet as tolerated. 3. Take a multivitamin daily
== END 2021-02-28 14:55 | disposition home or self-care (01) | DRG 392 ==
LOC: ED 02:54 → MEDSURG A 09:16
PROVIDERS: ADMIT Internal Medicine Geriatric Medicine; ATTEND Emergency Medicine
DX: F41.9 Anxiety disorder, unspecified; I10 Essential (primary) hypertension; N17.9 Acute kidney failure, unspecified; Z20.822 Contact with and (suspected) exposure to COVID-19; R10.84 Generalized abdominal pain; R10.9 Unspecified abdominal pain; K59.00 Constipation, unspecified; M25.50 Pain in unspecified joint; R11.2 Nausea with vomiting, unspecified

== ENCOUNTER 2021-11-01 14:53 | Inpatient (IN) ==
[2021-11-01] MEDS ORDERED: TYLENOL PO STA (15:05)
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
--- NOTE | 2021-11-01 15:55 | DI ---
EXAM: Radiographs, left knee HISTORY: Left knee pain. COMPARISON: 08/11/2018. TECHNIQUE: Two views. FINDINGS: Bone mineralization normal. No fracture or dislocation. Moderate tricompartmental margin al osteophyte formation noted. Anterior intra-articular bodies again noted. No erosions. No acute fracture or dislocation. Soft tissues unremarkable save for atherosclerotic calcifications. IMPRESSION: Stable moderate osteoarthritis with intra-articular bodies.
--- NOTE | 2021-11-01 16:01 | DI ---
EXAM: Three views of the right foot HISTORY: Right foot pain. COMPARISON: None FINDINGS: There is soft tissue injury of the distal great toe with a minimally displaced fracture to the distal aspect of the distal phalanx. The remaining osseous structures are unremarkable with mini mal degenerative change. IMPRESSION: Soft tissue injury to the distal great toe with underlying fracture fragment of the dist al phalanx
[2021-11-01 17:40] LABS: ALANINE AMINOTRANSFERASE 22.5 U/L (0-50); ALBUMIN 3.95 g/dL (3.5-5.0); ALKALINE PHOSPHATASE 72.5 U/L (56-119); ASPARTATE AMINO TRANSFERASE 33.9 U/L (17-59); BILIRUBIN,TOTAL 0.35 mg/dL (0.2-1.3); BLOOD UREA NITROGEN 18.1 mg/dL (9-20); CALCIUM 8.31 mg/dL (8.4-10.2); CHLORIDE 111.1 mmol/L (98-107); CREATININE 0.95 mg/dL (0.60-1.10); POTASSIUM 3.78 mmol/L (3.5-5.1); SODIUM 143.9 mmol/L (134.5-145); TOTAL PROTEIN 6.68 g/dL (6.3-8.2)
[2021-11-01 17:44] LABS: BASOPHILS % (AUTO) 0.7 % (0.0-3.0); EOSINOPHILS # (AUTO) 0.5 K/ul (0.0-0.7); EOSINOPHILS % (AUTO) 8.4 % (0.0-7.0); HEMATOCRIT 36.1 % (42.0-52.0); HEMOGLOBIN 11.9 g/dl (14.0-18.0); IMMATURE GRANULOCYTE % (AUTO) 0.2 % (0.0-5.0); LYMPHOCYTES # (AUTO) 1.7 K/uL (0.60-3.4); MEAN CORPUSCULAR HEMOGLOBIN 30.1 pg (27.0-31.0); MEAN CORPUSCULAR VOLUME 91.4 fl (80.0-94.0); MONOCYTES # (AUTO) 0.6 K/uL (0.4-2.0); MONOCYTES % (AUTO) 9.2 (0-10); NEUTROPHILS # (AUTO) 3.2 K/ul (2.0-6.9); NEUTROPHILS % (AUTO) 53.5 % (42.2-75.2); PLATELET COUNT 307 10^3/uL (140-440); RDW COEFFICIENT OF VARIATION 14.2 % (11.6-14.8); RED BLOOD COUNT 3.95 10^6/ul (4.70-6.10); WHITE BLOOD COUNT 5.97 K/ul (4.2-10.2)
--- NOTE | 2021-11-01 17:48 | CT ---
EXAM: CT right foot without contrast HISTORY: Pain, osteomyelitis COMPARISON: None. TECHNIQUE: Axial imaging of the right foot was performed without contrast. Sagittal and coronal re-f ormations were performed. FINDINGS: Decreased density involving the great toe distal phalanx with cortical loss involving the t uft of the great toe. There is overlying soft tissue swelling, soft tissue defect and gas density wi thin the soft tissues. No acute fracture or dislocation. There is mild degenerative changes with joint space narrowing and osteophyte formation. IMPRESSION: Osteomyelitis involving the right great toe distal phalanx with overlying soft tissue sw elling and soft tissue gas. All CT scans are performed using dose optimization techniques as appropriate to the performed exam an d include at least one of the following: Automated exposure control, adjustment of the mA and/or kV according t o size, and the use of iterative reconstruction technique.
[2021-11-01] MEDS ORDERED: VANCOMYCIN 1 GRAM/200 ML PREMIX 1 GM/200 ML BAG IV ONE (17:56)
[2021-11-01] MEDS ORDERED: ZOSYN 3.375 GM 3.375 GM in SODIUM CHLORIDE 50 ML IV ONE (19:31)
[2021-11-01] MEDS ORDERED: TORADOL IVP STA (19:52)
[2021-11-01] MEDS ORDERED: VASOTEC IV IVP ONE (19:52)
[2021-11-01] MEDS ORDERED: ZOFRAN 4 MG/2 ML IVP PRN (20:13)
[2021-11-01 20:23] LABS: ERYTHROCYTE SEDIMENTATION RATE 7 mm/hr (0-15)
[2021-11-01 20:48] VITALS: BMI 26.8
[2021-11-01] MEDS: ZOSYN 3.375 GM 3.375 GM in SODIUM CHLORIDE 100ML 50 ML IV SCH (23:44)
[2021-11-02] MEDS ORDERED: VANCOMYCIN 1 GRAM/200 ML PREMIX 1 GM/200 ML BAG IV SCH (06:00)
[2021-11-02] MEDS: ZESTRIL PO SCH (08:25)
[2021-11-02] MEDS: ZOSYN 3.375 GM 3.375 GM in SODIUM CHLORIDE 100ML 50 ML IV SCH ×2 (08:25→13:46)
[2021-11-02] MEDS: LOVENOX SUBCUT SCH (08:26)
--- NOTE | 2021-11-02 08:35 | PCM.PROG ---
REceived sign out on admitted patient from Dr. Victoria. Patient admitted with possible osteomyelitis of great toe and on IV antibiotics. Patient seen at 0715, 11/02/2021. S: "I feel OK" O Vitals : BP 135/88, Pulse 71, Resp 16, 02 sat 99 Heent: ATNC, EOMI., PERRLA neck supple, pharynx clear Chest: clear to A/P Cor: RRR, no m/r/g Abd: benign Ext: dry, macerated right great toe. no drainage, no bone exposure. No lymphangiitis or STS. No evidence of gangrene. Labs: CT scan shows probable osteomyelitis, but ESR is 7. Will check MRI today to confirm osteo, and anticipate discharge back to police custody with dressing on right great toe, po antibiotics . PCP follow up for definitive care.
[2021-11-02] MEDS ORDERED: VANCOMYCIN IV ONE (09:00)
[2021-11-02] MEDS ORDERED: SODIUM CHLORIDE IV ONE (09:00)
[2021-11-02] MEDS: NORCO 5-325 PO PRN ×2 (12:19→21:25)
--- NOTE | 2021-11-02 12:42 | MRI ---
EXAM: MRI of the right lower extremity without then with intravenous contrast (FOREFOOT). HISTORY: Evaluate for osteomyelitis COMPARISON: CT of the right foot from 11/01/2021 TECHNIQUE: Multiplanar MR images of the right midfoot and forefoot were acquired using a 1.5 Chantal m agnet before and after the intravenous admistration of a gadolinium-based contrast agent. The ankle/ hindfoot was incompletely imaged due to the protocol employed (forefoot protocol). FINDINGS: There is bone marrow edema and T1 marrow replacement in the great toe distal phalanx. There is an ov erlying soft tissue wound, soft tissue edema and soft tissue gas. No focal drainable fluid collectio n. There is fluid enhancing edema involving the great toe extensor tendon sheath. Correlate for ten osynovitis. There are no other areas of bone marrow edema or T1 marrow replacement. Irregularity at the second toe proximal interphalangeal joint, suggesting previous injury. Scattered degenerative changes. IMPRESSION: Findings compatible with osteomyelitis of the great toe distal phalanx. There is surrounding soft ti ssue edema and a soft tissue wound but no focal drainable fluid collection. No other areas of osteomyelitis. There is some fluid and enhancing edema involving the great toe flexor tendon sheath. Correlate for tenosynovitis. Scattered degenerative changes.
[2021-11-02 13:49] LABS: BASOPHILS # (AUTO) 0.1 K/uL (0-0.2); BASOPHILS % (AUTO) 0.8 % (0.0-3.0); EOSINOPHILS # (AUTO) 0.5 K/ul (0.0-0.7); EOSINOPHILS % (AUTO) 7.2 % (0.0-7.0); HEMATOCRIT 35.7 % (42.0-52.0); IMMATURE GRANULOCYTE % (AUTO) 0.2 % (0.0-5.0); LYMPHOCYTES # (AUTO) 1.7 K/uL (0.60-3.4); LYMPHOCYTES % (AUTO) 26.2 (10.0-50.0); MEAN CORPUSCULAR HEMOGLOBIN 31.1 pg (27.0-31.0); MEAN CORPUSCULAR HGB CONC 33.6 (31.8-35.4); MEAN CORPUSCULAR VOLUME 92.5 fl (80.0-94.0); MONOCYTES # (AUTO) 0.4 K/uL (0.4-2.0); MONOCYTES % (AUTO) 6.7 (0-10); NEUTROPHILS # (AUTO) 3.8 K/ul (2.0-6.9); NEUTROPHILS % (AUTO) 58.9 % (42.2-75.2); PLATELET COUNT 310 10^3/uL (140-440); RDW COEFFICIENT OF VARIATION 14.4 % (11.6-14.8); RED BLOOD COUNT 3.86 10^6/ul (4.70-6.10); WHITE BLOOD COUNT 6.42 K/ul (4.2-10.2)
[2021-11-02 13:59] LABS: BLOOD UREA NITROGEN 15.6 mg/dL (9-20); CALCIUM 8.17 mg/dL (8.4-10.2); CARBON DIOXIDE 25.4 mmol/L (22-30.0); CHLORIDE 107.6 mmol/L (98-107); CREATININE 1.02 mg/dL (0.60-1.10); GLUCOSE 123.4 mg/dL (74-106); POTASSIUM 3.65 mmol/L (3.5-5.1); SODIUM 138.8 mmol/L (134.5-145)
--- NOTE | 2021-11-02 14:39 | PCM.PROG ---
Patient admitted by Dr. Victoria last night, seen in AM rounds, 11/02/2021 S: " I feel fine" O Vitals: BP 145/89, Pulse 72, Resp 12,02 sat 99% HEENT: ATNC, EOMI, PERRLA neck supple Pharynx clear Chest Clear to A/P Cor: RRR, no m/r/g Abd: benign Ext: open wound on right great toe with ST exposed, no bone exposed, connor necrotic tissue. No cellulitis or lymphangiitis Assess/Plan: 1: Presumed osteomyelitis: On vanc and zosyn for presumed osteomyelitis of great toe. CT scan + but ESR is 7. Will check MRI today and keep on IV antibiotics for now. May be able to be switched to po in 1-2 days as he has mostly dry infection. Will place betadine wet to dry dressing BID to help with debridement.
[2021-11-02] MEDS: VANCOMYCIN 1.5 GRAM/300 ML PREMIX 1.5 GM/300 ML BAG IV SCH (21:08)
[2021-11-02] MEDS: ATARAX PO PRN (21:25)
[2021-11-02] MEDS: MAXIPIME 2 GM/50 ML D5W 2 GM/50 ML BAG IV SCH (22:00)
[2021-11-03] MEDS: MAXIPIME 2 GM/50 ML D5W 2 GM/50 ML BAG IV SCH ×3 (05:41→20:33)
[2021-11-03 06:09] LABS: BASOPHILS % (AUTO) 0.7 % (0.0-3.0); EOSINOPHILS # (AUTO) 0.4 K/ul (0.0-0.7); EOSINOPHILS % (AUTO) 6.9 % (0.0-7.0); HEMATOCRIT 38.4 % (42.0-52.0); HEMOGLOBIN 12.7 g/dl (14.0-18.0); LYMPHOCYTES % (AUTO) 35.4 (10.0-50.0); MEAN CORPUSCULAR HEMOGLOBIN 30.2 pg (27.0-31.0); MEAN CORPUSCULAR HGB CONC 33.1 (31.8-35.4); MEAN CORPUSCULAR VOLUME 91.4 fl (80.0-94.0); MONOCYTES # (AUTO) 0.5 K/uL (0.4-2.0); MONOCYTES % (AUTO) 8.1 (0-10); NEUTROPHILS # (AUTO) 2.8 K/ul (2.0-6.9); NEUTROPHILS % (AUTO) 48.9 % (42.2-75.2); PLATELET COUNT 318 10^3/uL (140-440); RDW COEFFICIENT OF VARIATION 14.2 % (11.6-14.8); WHITE BLOOD COUNT 5.65 K/ul (4.2-10.2)
[2021-11-03 06:23] LABS: CALCIUM 8.57 mg/dL (8.4-10.2); CARBON DIOXIDE 25.6 mmol/L (22-30.0); CHLORIDE 105.5 mmol/L (98-107); CREATININE 0.99 mg/dL (0.60-1.10); GLUCOSE 86.6 mg/dL (74-106); POTASSIUM 4.16 mmol/L (3.5-5.1); SODIUM 136.6 mmol/L (134.5-145)
[2021-11-03] MEDS: ZESTRIL PO SCH (08:30)
[2021-11-03] MEDS: LOVENOX SUBCUT SCH (08:31)
[2021-11-03] MEDS: VANCOMYCIN 1.5 GRAM/300 ML PREMIX 1.5 GM/300 ML BAG IV SCH ×2 (08:31→22:42)
[2021-11-03] MEDS: NORCO 5-325 PO PRN ×2 (08:38→20:32)
--- NOTE | 2021-11-03 10:29 | PCM.PROG ---
Date Seen by Provider: 11/03/21 Time Seen by Provider: 10:26 Subjective: pt seen for osteomyelitis of the right great toe Objective: Vitals: T=97.7 F, P=76, R=16, FD=122/108, SPO2=99 HEENT: []conjunctiva clear Neck: []supple Lungs: [] no respiratory distress CVS: []RRR Abdomen: []nondistended Extremities: []sts right great toe Neurological: []alert and oriented, no signs of withdrawal Skin: []warm Lab/Tests/Diagnostic Imaging: [] wbc normal range (1) Osteomyelitis: Status: Acute Code(s): M86.9 - Osteomyelitis, unspecified SNOMED Code(s): 76717827 Plan: continue cefepime and pharm dosing vanc, betadine wet to dry dressings attempt to transfer to podiatry, infectious dis, orthopedics care to Dr Blackwell at 19:00
[2021-11-03] MEDS: ATARAX PO PRN (20:32)
[2021-11-04] MEDS: MAXIPIME 2 GM/50 ML D5W 2 GM/50 ML BAG IV SCH ×3 (05:46→20:38)
[2021-11-04] MEDS: NORCO 5-325 PO PRN ×2 (08:45→20:37)
[2021-11-04] MEDS: ZESTRIL PO SCH (08:45)
[2021-11-04] MEDS: LOVENOX SUBCUT SCH (08:45)
[2021-11-04] MEDS: VANCOMYCIN 1.5 GRAM/300 ML PREMIX 1.5 GM/300 ML BAG IV SCH (09:01)
--- NOTE | 2021-11-04 09:26 | PCM.PROG ---
Date Seen by Provider: 11/04/21 Time Seen by Provider: 09:24 Subjective: pt improving, less pain Objective: Vitals: T=97.9 F, P=85, R=14, CC=521/96, SPO2=96 HEENT: []conjunctiva clear Neck: []supple Lungs: [] no respiratory distress CVS: []RRR Abdomen: []nondistended Extremities: []swelling right great toe Neurological: []alert and oriented Skin: []warm Lab/Tests/Diagnostic Imaging: [] (1) Osteomyelitis: Status: Acute Code(s): M86.9 - Osteomyelitis, unspecified SNOMED Code(s): 77326435 Plan: d/c tomorrow on oral antibiotics, contact podiatry for follow up care to Dr Victoria at 19:00
[2021-11-04] MEDS: MOTRIN PO PRN (11:19)
[2021-11-04] MEDS: ATARAX PO PRN (20:38)
[2021-11-05] MEDS: MAXIPIME 2 GM/50 ML D5W 2 GM/50 ML BAG IV SCH ×3 (05:22→20:11)
[2021-11-05 06:00] LABS: BASOPHILS # (AUTO) 0.1 K/uL (0-0.2); BASOPHILS % (AUTO) 0.8 % (0.0-3.0); EOSINOPHILS # (AUTO) 0.4 K/ul (0.0-0.7); HEMATOCRIT 38.3 % (42.0-52.0); HEMOGLOBIN 12.6 g/dl (14.0-18.0); IMMATURE GRANULOCYTE % (AUTO) 0.2 % (0.0-5.0); LYMPHOCYTES # (AUTO) 2.1 K/uL (0.60-3.4); LYMPHOCYTES % (AUTO) 34.1 (10.0-50.0); MEAN CORPUSCULAR HEMOGLOBIN 30.1 pg (27.0-31.0); MEAN CORPUSCULAR HGB CONC 32.9 (31.8-35.4); MEAN CORPUSCULAR VOLUME 91.6 fl (80.0-94.0); MONOCYTES # (AUTO) 0.5 K/uL (0.4-2.0); MONOCYTES % (AUTO) 8.8 (0-10); NEUTROPHILS % (AUTO) 50.1 % (42.2-75.2); PLATELET COUNT 269 10^3/uL (140-440); RDW COEFFICIENT OF VARIATION 14.5 % (11.6-14.8); RED BLOOD COUNT 4.18 10^6/ul (4.70-6.10); WHITE BLOOD COUNT 6.04 K/ul (4.2-10.2)
[2021-11-05 06:14] LABS: ALANINE AMINOTRANSFERASE 22.8 U/L (0-50); ALBUMIN 3.83 g/dL (3.5-5.0); ALKALINE PHOSPHATASE 59.7 U/L (56-119); ASPARTATE AMINO TRANSFERASE 23.1 U/L (17-59); BILIRUBIN,TOTAL 0.3 mg/dL (0.2-1.3); BLOOD UREA NITROGEN 24.4 mg/dL (9-20); CALCIUM 8.58 mg/dL (8.4-10.2); CARBON DIOXIDE 25.7 mmol/L (22-30.0); CHLORIDE 107.7 mmol/L (98-107); CREATININE 1.04 mg/dL (0.60-1.10); GLUCOSE 119.6 mg/dL (74-106); POTASSIUM 3.9 mmol/L (3.5-5.1); SODIUM 138.2 mmol/L (134.5-145); TOTAL PROTEIN 6.54 g/dL (6.3-8.2)
[2021-11-05] MEDS: LOVENOX SUBCUT SCH (08:19)
[2021-11-05] MEDS: ZESTRIL PO SCH (08:19)
[2021-11-05] MEDS: NORCO 5-325 PO PRN ×2 (08:38→20:11)
[2021-11-05] MEDS ORDERED: VANCOMYCIN 1.5 GRAM/300 ML PREMIX 1.5 GM/300 ML BAG IV SCH (09:00)
--- NOTE | 2021-11-05 10:38 | PCM.PROG ---
Date Seen by Provider: 11/05/21 Time Seen by Provider: 10:31 Subjective: Patient complains of toe pain. He is requiring narcotic analgesia. Objective: Vitals: T=97.3 F, P=102, R=18, YT=657/104, SPO2=99 Patient is alert, cooperative and in NAD. HEENT: [] Neck: [] Lungs: [] CVS: [] Abdomen: [] Extremities: []Foul odor of affected great toe noted. No cellulitis. Neurological: [] Skin: [] Lab/Tests/Diagnostic Imaging: [] (1) Osteomyelitis: Status: Acute Code(s): M86.9 - Osteomyelitis, unspecified SNOMED Code(s): 63986648 Plan: Patient with schizophrenia and poor medical compliance. He lives alone and has no support system. dairy department manager will see patient to arrange for outpatient consult with podiatry. She will also arrange for home nursing to do daily dressing changes and insure that patient is taking his PO antibiotics as directed.
[2021-11-05] MEDS: NORVASC PO SCH (11:39)
[2021-11-05] MEDS: ATARAX PO PRN (20:11)
[2021-11-06] MEDS: MOTRIN PO PRN (01:17)
[2021-11-06] MEDS: MAXIPIME 2 GM/50 ML D5W 2 GM/50 ML BAG IV SCH ×3 (05:03→20:02)
[2021-11-06 05:47] LABS: BASOPHILS # (AUTO) 0.1 K/uL (0-0.2); BASOPHILS % (AUTO) 0.8 % (0.0-3.0); EOSINOPHILS # (AUTO) 0.3 K/ul (0.0-0.7); EOSINOPHILS % (AUTO) 5.2 % (0.0-7.0); HEMATOCRIT 38.6 % (42.0-52.0); HEMOGLOBIN 12.8 g/dl (14.0-18.0); IMMATURE GRANULOCYTE % (AUTO) 0.2 % (0.0-5.0); LYMPHOCYTES # (AUTO) 1.6 K/uL (0.60-3.4); LYMPHOCYTES % (AUTO) 25.2 (10.0-50.0); MEAN CORPUSCULAR HEMOGLOBIN 30.1 pg (27.0-31.0); MEAN CORPUSCULAR HGB CONC 33.2 (31.8-35.4); MEAN CORPUSCULAR VOLUME 90.8 fl (80.0-94.0); MONOCYTES # (AUTO) 0.7 K/uL (0.4-2.0); MONOCYTES % (AUTO) 10.6 (0-10); NEUTROPHILS # (AUTO) 3.7 K/ul (2.0-6.9); PLATELET COUNT 310 10^3/uL (140-440); RDW COEFFICIENT OF VARIATION 14.4 % (11.6-14.8); RED BLOOD COUNT 4.25 10^6/ul (4.70-6.10); WHITE BLOOD COUNT 6.31 K/ul (4.2-10.2)
[2021-11-06 05:58] LABS: ALANINE AMINOTRANSFERASE 26.9 U/L (0-50); ALBUMIN 4.15 g/dL (3.5-5.0); ALKALINE PHOSPHATASE 61.4 U/L (56-119); ASPARTATE AMINO TRANSFERASE 26.9 U/L (17-59); BILIRUBIN,TOTAL 0.33 mg/dL (0.2-1.3); BLOOD UREA NITROGEN 23.7 mg/dL (9-20); CALCIUM 8.98 mg/dL (8.4-10.2); CARBON DIOXIDE 26.7 mmol/L (22-30.0); CHLORIDE 105.4 mmol/L (98-107); CREATININE 0.99 mg/dL (0.60-1.10); GLUCOSE 97.9 mg/dL (74-106); POTASSIUM 4.05 mmol/L (3.5-5.1); SODIUM 136.9 mmol/L (134.5-145); TOTAL PROTEIN 6.88 g/dL (6.3-8.2)
[2021-11-06] MEDS: SODIUM CHLORIDE IV SCH (08:04)
[2021-11-06] MEDS: VANCOMYCIN IV SCH (08:04)
[2021-11-06] MEDS: ZESTRIL PO SCH (08:09)
[2021-11-06] MEDS: NORVASC PO SCH (08:09)
[2021-11-06] MEDS: LOVENOX SUBCUT SCH (08:11)
[2021-11-06] MEDS: NORCO 5-325 PO PRN ×2 (08:23→20:01)
--- NOTE | 2021-11-06 10:02 | PCM.PROG ---
Date Seen by Provider: 11/06/21 Time Seen by Provider: 10:00 Subjective: pt seen for osteomyelitis of right great toe, has less pain Objective: Vitals: T=97.5 F, P=104, R=18, WG=856/102, SPO2=97 HEENT: []conjunctiva clear Neck: []supple Lungs: [] no respiratory distress CVS: []RRR Abdomen: []nondistended Extremities: []swelling right great toe Neurological: []alert and oriented Skin: []warm Lab/Tests/Diagnostic Imaging: [] (1) Osteomyelitis: Status: Acute Code(s): M86.9 - Osteomyelitis, unspecified SNOMED Code(s): 69213938 Plan: case management working on discharge, referral to podiatry and wound care clinic care to Dr Victoria at 19:00
[2021-11-06] MEDS: VANCOMYCIN 1 GM in SODIUM CHLORIDE 250 ML IV SCH (10:14)
[2021-11-06] MEDS: ATARAX PO PRN (20:01)
[2021-11-06] MEDS: SEROQUEL PO SCH (20:01)
[2021-11-07] MEDS: MAXIPIME 2 GM/50 ML D5W 2 GM/50 ML BAG IV SCH ×3 (04:25→22:03)
[2021-11-07] MEDS: NORVASC PO SCH (09:22)
[2021-11-07] MEDS: ZESTRIL PO SCH (09:23)
[2021-11-07] MEDS: LOVENOX SUBCUT SCH (09:23)
[2021-11-07] MEDS: NORCO 5-325 PO PRN ×2 (09:28→18:00)
[2021-11-07] MEDS: VANCOMYCIN 1 GRAM/200 ML PREMIX 1 GM/200 ML BAG IV SCH ×2 (09:48→20:32)
[2021-11-07] MEDS: VANCOMYCIN IV SCH (19:08)
[2021-11-07] MEDS: SODIUM CHLORIDE IV SCH (19:08)
[2021-11-07] MEDS: VANCOMYCIN 1 GM in SODIUM CHLORIDE 250 ML IV SCH (19:08)
--- NOTE | 2021-11-07 19:46 | PCM.PROG ---
Date Seen by Provider: 11/07/21 Time Seen by Provider: 18:30 Subjective: Patient having less pain. BP much better controlled since amlodipine added. Patient is agreeable to be discharged to a [facility]. Does complain of some left knee pain;xray shows moderate degenerative disease. Objective: Vitals: T=98.8 F, P=93, R=18, RV=349/75, SPO2=97 Patient appears to be comfortable. He is in good spirits. HEENT: [] Neck: [] Lungs: [] Clear. BS equal. CVS: []RRR. No peripheral edema. Abdomen: [] Extremities: []Left knee without swelling. ROM full. No effusion. No ligamentous laxity. Great toe dressing clean and intact. Neurological: [] Skin: [] Lab/Tests/Diagnostic Imaging: [] (1) Osteomyelitis: Status: Acute Code(s): M86.9 - Osteomyelitis, unspecified SNOMED Code(s): 52689241 Assessment: Continue IV antibiotics. Patient will need PICC line prior to discharge. Case management to make arrangements for transfer to [facility]. (2) HTN (hypertension): Status: Acute Code(s): I10 - Essential (primary) hypertension SNOMED Code(s): 70644811 Assessment: BP well controlled since amlodipine added to lisinopril. (3) Osteoarthritis of knee: Status: Acute Code(s): M17.10 - Unilateral primary osteoarthritis, unspecified knee SNOMED Code(s): 887495006 Assessment: Patient should avoid NSAIDS with history of renal disease. Plan: PICC line placement. Transfer to [facility] as soon as arrangements made.
[2021-11-07] MEDS: SEROQUEL PO SCH (20:32)
[2021-11-07] MEDS: MORPHINE 2 MG/ML VIAL IVP PRN (20:46)
[2021-11-08] MEDS: MAXIPIME 2 GM/50 ML D5W 2 GM/50 ML BAG IV SCH ×3 (05:16→20:22)
[2021-11-08] MEDS: NORCO 5-325 PO PRN ×2 (07:06→15:04)
[2021-11-08] MEDS: VANCOMYCIN 1 GRAM/200 ML PREMIX 1 GM/200 ML BAG IV SCH ×2 (09:31→21:23)
[2021-11-08] MEDS: NORVASC PO SCH (09:32)
[2021-11-08] MEDS: ZESTRIL PO SCH (09:32)
[2021-11-08] MEDS: LOVENOX SUBCUT SCH (09:33)
--- NOTE | 2021-11-08 10:28 | PCM.PROG ---
Date Seen by Provider: 11/08/21 Time Seen by Provider: 10:25 Subjective: right great toe osteomyelitis improving pain Objective: Vitals: T=98 F, P=99, R=16, IE=282/84, SPO2=98 HEENT: []conjunctiva clear Neck: []supple Lungs: [] no respiratory distress CVS: [] Abdomen: []nondistended Extremities: []warm and dry Neurological: []alert and oriented Skin: []sts right great toe Lab/Tests/Diagnostic Imaging: [] (1) Osteomyelitis: Status: Acute Code(s): M86.9 - Osteomyelitis, unspecified SNOMED Code(s): 50396649 (2) HTN (hypertension): Status: Acute Code(s): I10 - Essential (primary) hypertension SNOMED Code(s): 81093983 (3) Osteoarthritis of knee: Status: Acute Code(s): M17.10 - Unilateral primary osteoarthritis, unspecified knee SNOMED Code(s): 465716479 Plan: obtain picc line, case management for NH placement, continue Phar dosing Vanc care to Dr Victoria at 19:00
[2021-11-08] MEDS: MORPHINE 2 MG/ML VIAL IVP PRN ×2 (11:46→20:35)
[2021-11-08] MEDS: MOTRIN PO PRN (15:07)
[2021-11-08] MEDS: SEROQUEL PO SCH (20:22)
[2021-11-09] MEDS: MAXIPIME 2 GM/50 ML D5W 2 GM/50 ML BAG IV SCH (05:23)
[2021-11-09 05:38] VITALS: BP 115/79; TEMP 98.1
[2021-11-09] MEDS ORDERED: VANCOMYCIN 1 GRAM/200 ML PREMIX 1 GM/200 ML BAG IV ONE (06:00)
--- NOTE | 2021-11-09 07:29 | PCM.DC ---
Final Diagnosis: right great toe osteomyelitis Physical Exam Appearance: Well-appearing Ill-appearing: None Pain Distress: None Eyes: Conjunctiva clear ENT: Oropharynx normal Neck: Supple Respiratory: Airway patent Cardiovascular: RRR GI/: Soft and Nontender Musculoskeletal: Other (sts right great toe) Skin: Warm Neurological: Alert and Oriented Psychiatric: Affect appropriate (1) Osteomyelitis: Status: Acute Code(s): M86.9 - Osteomyelitis, unspecified SNOMED Code(s): 93139069 (2) HTN (hypertension): Status: Acute Code(s): I10 - Essential (primary) hypertension SNOMED Code(s): 78972911 (3) Osteoarthritis of knee: Status: Acute Code(s): M17.10 - Unilateral primary osteoarthritis, unspecified knee SNOMED Code(s): 309600557 Reason for Hospitalization: osteomyelitis Prognosis/Condition at Discharge: fair Medications at Discharge: Ambulatory Orders Medication Instructions Recorded lisinopril 30 mg tablet 30 mg PO DAILY 30 Days #30 tab-cap 09/10/18 meloxicam 15 mg tablet 15 mg PO DAILY 30 Days #30 tab-cap 09/10/18 hydroxyzine HCl 25 mg tablet 12.5 - 25 mg PO daily to BID PRN 10/13/18 30 Days #45 tab-cap quetiapine 50 mg tablet (Seroquel) 100 mg PO BEDTIME 04/21/19 alprazolam 0.5 mg tablet (Xanax) 0.5 mg PO TID 10/05/19 hydroxyzine HCl 50 mg tablet 50 mg PO TID PRN #30 tab 02/28/21 ibuprofen 600 mg tablet 600 mg PO Q6H PRN #20 tab 04/03/21 Lab/Diagnostics: ct right foot shows osteomyelitis at the right great toe Education Provided to Patient and Family: wound care, wet to dry dressings daily Follow-ups: refer to [facility] and Dr Vang for continued care zestril for hypertension and vancomycin 1gm q12 and cefepime 2gm q8 Discharge Disposition: [facility] Hospital Course: pt improved pain control Plan: discharge to [facility] for PICC line, then [facility] Dr Vang
[2021-11-09] MEDS: NORCO 5-325 PO PRN (08:52)
[2021-11-09] MEDS: ZESTRIL PO SCH (08:56)
[2021-11-09] MEDS: NORVASC PO SCH (08:56)
== END 2021-11-09 09:10 | DRG 540 ==
LOC: ED 14:53 → MEDSURG A 19:44 → UNDODISIN 11-09 07:30
PROVIDERS: ADMIT Internal Medicine Geriatric Medicine; ATTEND Emergency Medicine Emergency Medical Services
DX: M86.171 Other acute osteomyelitis, right ankle and foot; I10 Essential (primary) hypertension; Z51.81 Encounter for therapeutic drug level monitoring; Z20.822 Contact with and (suspected) exposure to COVID-19; Z79.01 Long term (current) use of anticoagulants; M17.10 Unilateral primary osteoarthritis, unspecified knee; M86.9 Osteomyelitis, unspecified; Z79.899 Other long term (current) drug therapy